=== PATIENT | male | born 1985 | race Caucasian/White ===

== ENCOUNTER 2022-09-24 21:21 | Emergency (ER) | payer SELFPAY ==
[~2022-09-24] VITALS: Ht 170.1 cm; Wt 80.0 kg
[2022-09-24 21:27] VITALS: BP 159/85
--- NOTE | 2022-09-24 21:29 | ED EENT ---
History of Present Illness General Stated Complaint: LOST EARBUD PIECE IN EAR, PAIN History of Present Illness Date Seen by Provider: Sep 24, 2022 Time Seen by Provider: 21:25 Initial Comments 37-year-old male presents with a earbud that was stuck in his ear. He cannot issue his ear and should get in the plastic part of blood come off and his left ear canal. He is complaining some pain with it. This happened just prior to arrival Allergies and Home Medications Allergies Coded Allergies: No Known Drug Allergies (Unverified , 09/24/22) Patient Home Medication List Home Medication List Reviewed: Yes Review of Systems Review of Systems Constitutional: no symptoms reported Eyes: No Symptoms Reported Ears: See HPI Nose: no symptoms reported Mouth: no symptoms reported Throat: no symptoms reported Respiratory: no symptoms reported Cardiovascular: no symptoms reported Gastrointestinal: no symptoms reported Physical Exam Vital Signs Vital Signs - First Documented 09/24/22 21:27 Temp 36.3 Pulse 81 Resp 16 B/P (MAP) 159/85 (109) Pulse Ox 98 O2 Delivery Room Air Height, Weight, BMI Height: '" Weight: lbs. oz. kg; BMI Method: General Appearance: WD/WN Ears: left ear other (Plastic earbud piece and canal) Cardiovascular: normal peripheral pulses, regular rate, rhythm Neurologic/Psychiatric: alert, oriented x 3 Skin: normal color, warm/dry Procedures/Interventions Ear : Ear Location: Left (Left) Foreign Body Removal: FB in the Ear Canal Use of: Forceps Progress/Conclusion Patient tolerated well with no immediate complication Progress/Results/Core Measures Results/Orders Vital Signs/I&O 09/24/22 21:27 Temp 36.3 Pulse 81 Resp 16 B/P (MAP) 159/85 (109) Pulse Ox 98 O2 Delivery Room Air Progress Progress Note : Progress Note Patient with rubber earbud cover in left ear canal that was removed with alligator clamp. Patient tolerated no difficulty. He was stable and discharged home. Departure Impression Primary Impression: Foreign body in left ear, initial encounter Disposition: 01 HOME, SELF-CARE Condition: Stable Departure-Patient Inst. Patient Instructions: Foreign Body in Ear, Child (DC) Add. Discharge Instructions: Follow-up with your primary care provider as needed DIEGO MORALES DO Sep 24, 2022 21:29
== END 2022-09-24 21:37 | disposition home or self-care (01) ==
LOC: ER FS 21:26
DX: T16.2XXA Foreign body in left ear, initial encounter (principal); Z28.310 Unvaccinated for COVID-19; W45.8XXA Other foreign body or object entering through skin, initial encounter
CPT/HCPCS: 99282